=== PATIENT | male | born 1980 | race Two or more races ===

== ENCOUNTER 2017-06-11 04:29 | Emergency (ER) | payer MEDICAID ==
[~2017-06-11] VITALS: Ht 165.1 cm; Wt 117.9 kg
[2017-06-11] MEDS ORDERED: NKM (04:37)
[2017-06-11] MEDS ORDERED: TAMIFLU75 MG ORAL (04:43)
[2017-06-11] MEDS ORDERED: TESSALON PERLE100 MG ORAL (04:43)
[2017-06-11] MEDS ORDERED: Ketorolac 30mg Inj ONE (04:47)
[2017-06-11 04:48] VITALS: BP 128/77
[2017-06-11] MEDS ORDERED: Ketorolac 30mg Inj IM ONE (05:00)
[2017-06-11 05:13] VITALS: BP 128/77
--- NOTE | 2017-06-11 11:34 | Diagnostic Imaging Report ---
Indication: Cough Technique: XRAY Chest 1v Comparison: 12/14/2011 Findings: Heart size and mediastinal contours are within normal limits given technique. There is no focal consolidation, pneumothorax or pleural effusion. Osseous structures demonstrate no acute abnormality. Impression: No focal airspace consolidation.
--- NOTE | 2017-06-11 21:29 | Emergency Room Report ---
History of Present Illness General Chief Complaint: Upper Respiratory Illness Source: Patient Present Illness HPI 36-year-old male, no significant past medical history, presenting with fever chills myalgias runny nose for 3-4 days. States that his family is sick at home. Has still been able to eat and drink. Complaining of throat pain, nonproductive cough. Allergies: Coded Allergies: No Known Allergies (Unverified , 06/11/17) Patient History Past Medical History: see triage record Past Surgical History: none Pertinent Family History: none Reviewed Nursing Documentation: PMH: Agreed, PSxH: Agreed Nursing Documentation-PMH Past Medical History: No Stated History Review of Systems All Other Systems: negative except mentioned in HPI Physical Exam Vital Signs Date Time Temp Pulse Resp B/P (MAP) Pulse Ox O2 Delivery O2 Flow Rate FiO2 06/11/17 04:32 99.9 117 18 128/77 99 Room Air Sp02 EP Interpretation: reviewed, normal General Appearance: alert, GCS 15, non-toxic, mild distress Head: normocephalic, atraumatic Eyes: bilateral eye normal inspection, bilateral eye PERRL, bilateral eye EOMI ENT: normal ENT inspection, normal pharynx, normal voice, moist mucus membranes Neck: normal inspection, full range of motion, supple Respiratory: normal inspection, lungs clear, normal breath sounds, no respiratory distress, no retraction, no wheezing, speaking full sentences, chest symmetrical Cardiovascular #1: normal inspection, regular rate, rhythm, no edema, normal capillary refill Cardiovascular #2: 2+ radial (R), 2+ radial (L) Gastrointestinal: normal inspection, non tender, soft, non-distended, no guarding Genitourinary: no CVA tenderness Musculoskeletal: normal inspection, back normal, normal range of motion, non- tender Neurologic: normal inspection, alert, oriented x3, responsive, motor strength/ tone normal, sensory intact, normal gait, speech normal Psychiatric: normal inspection, judgement/insight normal, memory normal Skin: normal inspection, normal color, no rash, warm/dry, well hydrated, normal turgor Medical Decision Making Diagnostic Impression: Primary Impression: Flu-like symptoms ER Course 36-year-old male with fever chills cough runny nose DDX: Flu like symptoms versus pneumonia Plan: CXR ER course: Patient remains nontoxic, not in resp distress. Appears well-hydrated CXR obtained - no acute infiltrate Disposition: Patient is to be discharged home with a prescription of Tamiflu and tessalon pearls Strict precautions discussed with patient on when to return to the emergency room including hemoptysis, high fevers, chills, SOB, chest pain inability to eat or drink, intractable nausea or vomiting which may indicate severe illness. Patient is to follow up with their primary care doctor within 5 days. Patient agrees with plan. Please note that this Emergency Department Report was dictated using [employer] technology software, occasionally this can lead to erroneous entry secondary to interpretation by the dictation equipment Chest X-ray CXR: Ordered: Yes 1 view Indication: Cough EP interpretation: Yes Interpretation: No consolidation, no effusion, no PTX, no acute cardiopulmonary disease Impression: No acute disease Electronically signed by Janine Chauhan MD Last Vital Signs Date Time Temp Pulse Resp B/P (MAP) Pulse Ox O2 Delivery O2 Flow Rate FiO2 06/11/17 05:13 99.9 113 18 128/77 96 Room Air Disposition: HOME, SELF-CARE Condition: Stable Scripts Oseltamivir Phosphate (Tamiflu) 75 Mg Capsule 75 MG ORAL TWICE A DAY for 5 Days, #10 CAP 0 Refills Prov: Janine Chauhan M.D. 06/11/17 Benzonatate* (TESSALON PERLE*) 100 Mg Capsule 100 MG ORAL THREE TIMES A DAY for 7 Days, #21 PERLE Prov: Janine Chauhan M.D. 06/11/17 Referrals: [facility],REFERRING (PCP) Patient Instructions: Upper Respiratory Infection, Adult Janine Chauhan M.D. Jun 11, 2017 21:29
[2017-06-16] MEDS ORDERED: AUGMENTIN 875-1 EAC1 ORAL (08:04)
== END 2017-06-11 05:13 | disposition home or self-care (01) ==
LOC: EMR 04:49
DX: J11.1 Influenza due to unidentified influenza virus with other respiratory manifestations (principal)
CPT/HCPCS: 71045; 96372; 99283; J1885

== ENCOUNTER 2017-06-11 19:51 | Inpatient (IN) | payer OTHER, MEDICAID ==
[~2017-06-11] VITALS: Ht 165.1 cm; Wt 112.9 kg
[~2017-06-11 19:51] MED LIST: NKM; TAMIFLU75 MG ORAL; TESSALON PERLE100 MG ORAL
[2017-06-11 20:15] VITALS: BP 126/83
[2017-06-11] MEDS ORDERED: HYDROcodone/Acetamin 7.5/325 tab ORAL ONE (21:00)
--- NOTE | 2017-06-11 21:49 | Emergency Room Report ---
History of Present Illness General Chief Complaint: Flu Like Symptoms Source: Patient (Yue Mckeon) Present Illness HPI 36-year-old male presents to the emergency department complaining of 8/10 in severity frontal sinus headache, generalized body aches, cough, subjective fevers and chills with fatigue x3 days. Patient was seen here in the emergency department earlier today. He was discharged with Tamiflu and Tessalon Perles. Patient states that his symptoms continue to progress. he reports decreased appetite. Progressive fatigue. Denies high fevers, neck stiffness, irritability, dehydration, N/V/D. Denies Cp, Palpitations, LOC, AMS, seizures, paresthesias, or changes in Hearing or vision, no Sudden severe ROBB. (Yue Mckeon) Allergies: Coded Allergies: No Known Allergies (Unverified , 06/11/17) Patient History Past Medical History: see triage record Past Surgical History: none Pertinent Family History: none Reviewed Nursing Documentation: PMH: Agreed, PSxH: Agreed (Yue Mckeon) Nursing Documentation-PMH Past Medical History: No Stated History (Yue Mckeon) Review of Systems All Other Systems: negative except mentioned in HPI (Yue Mckeon) Physical Exam Vital Signs Date Time Temp Pulse Resp B/P (MAP) Pulse Ox O2 Delivery O2 Flow Rate FiO2 06/11/17 20:10 99.7 120 16 126/83 98 Room Air Sp02 EP Interpretation: reviewed, normal General Appearance: alert, GCS 15, non-toxic, mild distress Head: normocephalic, atraumatic Eyes: bilateral eye normal inspection, bilateral eye PERRL ENT: hearing grossly normal, normal pharynx, normal voice, uvula midline, pharyngeal erythema, other - no exudates Neck: full range of motion Respiratory: chest non-tender, lungs clear, normal breath sounds, no respiratory distress, no wheezing, speaking full sentences Cardiovascular #1: no edema, normal capillary refill, tachycardia Gastrointestinal: normal bowel sounds, non tender, soft Rectal: deferred Genitourinary: normal inspection Musculoskeletal: back normal, gait/station normal, normal range of motion, non- tender Neurologic: alert, oriented x3, responsive, motor strength/tone normal, sensory intact, speech normal, no pronator, other - negative muñoz's, grossly normal Psychiatric: judgement/insight normal Skin: normal color, no rash, warm/dry, well hydrated Lymphatic: no adenopathy (Yue Mckeon) Procedures Critical Care Time Critical Care Time 40 minutes of CC time 36-year-old male, fever chills, shortness of breath, cough VS: Tachycardic, febrile Airway patent. Not hypoxic. PLAN: IV access, labs, lactate, troponin, Blood/Urine Cx, Abx, IVF Anticipate admission to Tele vs. KATHLEEN CC time also includes review of labs, review of EMR, discussion with family and paperwork from SNF, d/w hospitalist CC could include dosing of pressors, additional Abx CC time does not include procedures (Janine Chauhan M.D.) Medical Decision Making PA Attestation Dr. pringle is my supervising Physician whom patient management has been discussed with. (Yue Mckeon) Diagnostic Impression: Primary Impression: Flu-like symptoms Additional Impressions: Influenza-like symptoms Sepsis ER Course 36-year-old male presents to the emergency department complaining of 8/10 in severity frontal sinus headache, generalized body aches, cough, subjective fevers and chills with fatigue x3 days. Patient was seen here in the emergency department earlier today. He was discharged with Tamiflu and Tessalon Perles. Patient states that his symptoms continue to progress. he reports decreased appetite. Progressive fatigue. Denies high fevers, neck stiffness, irritability, dehydration, N/V/D. Denies Cp, Palpitations, LOC, AMS, seizures, paresthesias, or changes in Hearing or vision, no Sudden severe ROBB. Ddx considered but are not limited to URI, pneumonia, PE, strep pharyngitis, meningitis, influenza just to name a few. Vital signs: Pt is tachycardic at 120bpm, remaining VS are WNL He is afebrile. H&PE are most consistent with URI- no meningeal signs, oropharynx is not involved ORDERS: -CBC: Pending -CMP; Pending -INFLUENZA NASAL SWABS: Pending ED INTERVENTIONS: None required at this time. - 1 Liter NS Bolus -[place] PO This patient has been signed out to attending physician Dr. Chauhan, and is awaiting completion of the labs, IV fluids and reassessment. (Yue Mckeon) ER Course I received signout. This is a 36-year-old male, has had flulike symptoms, myalgias, runny nose, cough. Was seen in the emergency room by me yesterday, was discharged with medications. Patient now returning with worsening symptoms. Feeling very weak. Tachycardic, febrile Given fluids, [place], Tylenol White blood cell count is elevated, also patient has bandemia Unclear what source of infection is, likely flu, Tamiflu given here. blood cultures were drawn. Broad-spectrum antibiotics also given for sepsis Sepsis Re-examination Time: 12 AM VS: Temp 99 HR 100 BP 110/69 RR 17 CVS: RRR Respiratory: Lungs clear bilaterally Peripheral pulses: 2+ radial Capillary refill: <2 seconds Skin exam: warm, dry, no rash, not mottled Patient will be admitted to telemetry for sepsis Patient was signed out to Dr Cuellar, who has accepted patient for admission. EKG Diagnostic Results EP Interpretation: Yes Rate: Tachycardic Rhythm: NSR ST Segments: No acute changes ASA given to patient: No Rhythm Strip EP Interpretation: Yes Rate: 94 Rhythm: NSR, no PVCs, no ectopy Chest X-ray CXR: Ordered: Yes 1 view Indication: Shortness of breath EP interpretation: Yes Interpretation: No consolidation, no effusion, no PTX, no acute cardiopulmonary disease Impression: No acute disease Electronically signed by Janine Chauhan MD Laboratory Tests Test 06/11/17 21:50 06/11/17 23:55 White Blood Count 20.9 K/UL (4.8-10.8) H Red Blood Count 6.10 M/UL (4.70-6.10) Hemoglobin 16.1 G/DL (14.2-18.0) Hematocrit 53.4 % (42.0-52.0) H Mean Corpuscular Volume 88 FL (80-99) Mean Corpuscular Hemoglobin 26.4 PG (27.0-31.0) L Mean Corpuscular Hemoglobin Concent 30.1 G/DL (32.0-36.0) L Red Cell Distribution Width 13.4 % (11.6-14.8) Platelet Count 216 K/UL (150-450) Mean Platelet Volume 7.4 FL (6.5-10.1) Neutrophils (%) (Auto) % (45.0-75.0) Lymphocytes (%) (Auto) % (20.0-45.0) Monocytes (%) (Auto) % (1.0-10.0) Eosinophils (%) (Auto) % (0.0-3.0) Basophils (%) (Auto) % (0.0-2.0) Differential Total Cells Counted 100 Neutrophils % (Manual) 73 % (45-75) Lymphocytes % (Manual) 13 % (20-45) L Monocytes % (Manual) 7 % (1-10) Eosinophils % (Manual) 0 % (0-3) Basophils % (Manual) 0 % (0-2) Band Neutrophils 7 % (0-8) Platelet Estimate Adequate Platelet Morphology Normal Red Blood Cell Morphology Normal Sodium Level 133 MMOL/L (136-145) L Potassium Level 3.8 MMOL/L (3.5-5.1) Chloride Level 96 MMOL/L (98-107) L Carbon Dioxide Level 26 MMOL/L (21-32) Anion Gap 11 mmol/L (5-15) Blood Urea Nitrogen 9 mg/dL (7-18) Creatinine 1.1 MG/DL (0.55-1.30) Estimate Glomerular Filtration Rate > 60 mL/min (>60) Glucose Level 105 MG/DL (74-106) Calcium Level 9.6 MG/DL (8.5-10.1) Total Bilirubin 0.8 MG/DL (0.2-1.0) Aspartate Amino Transferase (AST) 27 U/L (15-37) Alanine Aminotransferase (ALT) 49 U/L (12-78) Alkaline Phosphatase 139 U/L (46-116) H Total Protein 8.8 G/DL (6.4-8.2) H Albumin 3.9 G/DL (3.4-5.0) Globulin 4.9 g/dL Albumin/Globulin Ratio 0.8 (1.0-2.7) L Lactic Acid Level Pending Microbiology Date/Time Source Procedure Growth Status 06/11/17 21:50 Nasal Nares Influenza Types A,B Antigen (CARLOS) - Final Complete (Retino,Clairose M.D.) Last Vital Signs Date Time Temp Pulse Resp B/P (MAP) Pulse Ox O2 Delivery O2 Flow Rate FiO2 06/11/17 20:10 99.7 120 16 126/83 98 Room Air (Yue Mckeon) Disposition: ADMITTED INPATIENT Condition: Serious Signed Out To: Dr. Chauhan (Yue Mckeon) Yue Mckeon Jun 11, 2017 21:49 Janine Chauhan M.D. Jun 11, 2017 23:50
[2017-06-11 22:26] LABS: HEMATOCRIT 53.4 % (42.0-52.0); HEMOGLOBIN 16.1 G/DL (14.2-18.0); MEAN CORPUSCULAR VOLUME 88 FL (80-99); PLATELET COUNT 216 K/UL (150-450); RED CELL DISTRIBUTION WIDTH 13.4 % (11.6-14.8); WHITE BLOOD COUNT 20.9 K/UL (4.8-10.8)
[2017-06-11 22:39] LABS: ANION GAP 11 mmol/L (5-15); BLOOD UREA NITROGEN 9 mg/dL (7-18); CALCIUM 9.6 MG/DL (8.5-10.1); CARBON DIOXIDE 26 MMOL/L (21-32); CHLORIDE 96 MMOL/L (98-107); CREATININE 1.1 MG/DL (0.55-1.30); POTASSIUM 3.8 MMOL/L (3.5-5.1); SODIUM 133 MMOL/L (136-145)
[2017-06-11 22:43] LABS: ALANINE AMINOTRANSFERASE 49 U/L (12-78); ALBUMIN 3.9 G/DL (3.4-5.0); ALBUMIN/GLOBULIN RATIO 0.8 (1.0-2.7); ALKALINE PHOSPHATASE 139 U/L (46-116); ASPARTATE AMINO TRANSFERASE 27 U/L (15-37); BILIRUBIN,TOTAL 0.8 MG/DL (0.2-1.0)
[2017-06-11] MEDS ORDERED: Oseltamivir 75mg cap ORAL ONE (23:00)
[2017-06-11] MEDS ORDERED: Vancomycin 1.5gm/D5W 250ml 250 ML IVPB ONE (23:15)
[2017-06-11] MEDS ORDERED: Cefepime HCl 1 GM in D5W 55 ML IVPB ONE (23:15)
[2017-06-11 23:58] VITALS: BP 127/84
[2017-06-12] VITALS (7 sets, daily range): BP systolic 122–141; BP diastolic 66–76
[2017-06-12] MEDS ORDERED: Cefepime 1gm vial ONE (00:19)
[2017-06-12] MEDS ORDERED: Promethazine/Codeine 5ml UD ORAL PRN ×2 (07:30→18:00)
[2017-06-12] MEDS ORDERED: Nitroglycerin Subl 0.4mg tab SL PRN ×2 (07:30→18:00)
[2017-06-12] MEDS ORDERED: Norco 5mg/325mg tab ORAL PRN ×2 (07:30→18:00)
[2017-06-12] MEDS ORDERED: Morphine Sulfate 2mg/ml Inj IVP PRN ×2 (07:30)
[2017-06-12] MEDS ORDERED: LORazepam Inj 2mg/ml 1ml IV PRN ×2 (07:30→18:00)
[2017-06-12] MEDS ORDERED: Ketorolac 30mg Inj IV PRN ×3 (07:30→18:00)
[2017-06-12] MEDS ORDERED: Albuterol/Ipratropium 3ml neb HHN PRN ×2 (07:30→18:00)
[2017-06-12] MEDS ORDERED: Heparin 5000 units/ml inj SUBQ SCH (09:00)
[2017-06-12] MEDS ORDERED: Theophylline ER 100mg ORAL SCH (09:00)
--- NOTE | 2017-06-12 10:37 | Diagnostic Imaging Report ---
Indication: Dyspnea Comparison: 06/11/2017 A single view chest radiograph was obtained. Findings: Cardiomediastinal appearance is within normal limits for age. Pulmonary vascularity is appropriate. The diaphragmatic contour is smooth and costophrenic angles are sharp. No pleural effusions are identified. The bones are unremarkable. Impression: No acute findings
[2017-06-12] MEDS ORDERED: Solu-MEDROL 125mg Inj IV SCH (12:00)
[2017-06-12] MEDS ORDERED: Piperacillin/Tazobactam 2.25 GM in D5W 55 ML IV SCH (14:00)
[2017-06-12] MEDS ORDERED: Zoysn 3.37gm in NS 100ML IVPB SCH (14:00)
--- NOTE | 2017-06-12 15:26 | History and Physical ---
History of Present Illness General Date patient seen: Jun 12, 2017 Reason for Hospitalization: Flu Like Symptoms Present Illness HPI 36-year-old male presents to the emergency department complaining of 8/10 in severity frontal sinus headache, generalized body aches, cough, subjective fevers and chills with fatigue x3 days. Patient states that his symptoms continue to progress. he reports decreased appetite. Progressive fatigue. Denies high fevers, neck stiffness, irritability, dehydration, N/V/D. Denies Cp , Palpitations, LOC, AMS, seizures, paresthesias, or changes in Hearing or vision, no Sudden severe ROBB. Pt was septic with tachycardia of 120 and admitted to telemetry for further work up. Allergies: Coded Allergies: No Known Allergies (Unverified , 06/11/17) Medication History Scheduled Benzonatate* (Tessalon Perle*), 100 MG ORAL THREE TIMES A DAY No Known Medications* (NKM - No Known Medications*), 0 ., (Reported) Oseltamivir Phosphate (Tamiflu), 75 MG ORAL TWICE A DAY Patient History Healthcare decision maker Resuscitation status Full Code Advanced Directive on File Review of Systems All Other Systems: negative except mentioned in HPI Physical Exam General Appearance: WD/WN Lines, tubes and drains: peripheral HEENT: normocephalic Neck: non-tender, normal alignment Respiratory/Chest: chest wall non-tender, lungs clear Breasts: no masses Cardiovascular/Chest: normal peripheral pulses Abdomen: normal bowel sounds Genitourinary/Rectal: normal genital exam Extremities: normal range of motion Skin Exam: normal pigmentation 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 Last 24 Hour Vital Signs Date Time Temp Pulse Resp B/P (MAP) Pulse Ox O2 Delivery O2 Flow Rate FiO2 06/12/17 12:00 97.7 60 18 141/74 100 06/12/17 12:00 71 06/12/17 08:00 97.4 63 19 133/75 100 06/12/17 08:00 80 06/12/17 04:00 88 06/12/17 04:00 98.1 102 20 124/76 97 06/12/17 01:55 98.1 106 20 141/76 100 06/12/17 01:33 99.0 99 27 122/66 95 Room Air 06/12/17 01:27 99.0 99 27 122/66 95 Room Air 06/11/17 23:58 99.0 109 19 127/84 96 Room Air 06/11/17 20:15 99.7 120 16 126/83 98 Room Air 06/11/17 20:15 120 16 Room Air 06/11/17 20:10 99.7 120 16 126/83 98 Room Air Intake and Output 06/11/17 06/12/17 19:00 07:00 Intake Total 250 ml Output Total 1000 ml Balance -750 ml Intake Oral 0 ml IV Total 250 ml Output Urine Total 1000 ml Laboratory Tests Test 06/11/17 21:50 06/11/17 23:55 White Blood Count 20.9 K/UL (4.8-10.8) H Red Blood Count 6.10 M/UL (4.70-6.10) Hemoglobin 16.1 G/DL (14.2-18.0) Hematocrit 53.4 % (42.0-52.0) H Mean Corpuscular Volume 88 FL (80-99) Mean Corpuscular Hemoglobin 26.4 PG (27.0-31.0) L Mean Corpuscular Hemoglobin Concent 30.1 G/DL (32.0-36.0) L Red Cell Distribution Width 13.4 % (11.6-14.8) Platelet Count 216 K/UL (150-450) Mean Platelet Volume 7.4 FL (6.5-10.1) Neutrophils (%) (Auto) % (45.0-75.0) Lymphocytes (%) (Auto) % (20.0-45.0) Monocytes (%) (Auto) % (1.0-10.0) Eosinophils (%) (Auto) % (0.0-3.0) Basophils (%) (Auto) % (0.0-2.0) Differential Total Cells Counted 100 Neutrophils % (Manual) 73 % (45-75) Lymphocytes % (Manual) 13 % (20-45) L Monocytes % (Manual) 7 % (1-10) Eosinophils % (Manual) 0 % (0-3) Basophils % (Manual) 0 % (0-2) Band Neutrophils 7 % (0-8) Platelet Estimate Adequate Platelet Morphology Normal Red Blood Cell Morphology Normal Sodium Level 133 MMOL/L (136-145) L Potassium Level 3.8 MMOL/L (3.5-5.1) Chloride Level 96 MMOL/L (98-107) L Carbon Dioxide Level 26 MMOL/L (21-32) Anion Gap 11 mmol/L (5-15) Blood Urea Nitrogen 9 mg/dL (7-18) Creatinine 1.1 MG/DL (0.55-1.30) Estimat Glomerular Filtration Rate > 60 mL/min (>60) Glucose Level 105 MG/DL (74-106) Calcium Level 9.6 MG/DL (8.5-10.1) Total Bilirubin 0.8 MG/DL (0.2-1.0) Aspartate Amino Transf (AST/SGOT) 27 U/L (15-37) Alanine Aminotransferase (ALT/SGPT) 49 U/L (12-78) Alkaline Phosphatase 139 U/L (46-116) H Total Protein 8.8 G/DL (6.4-8.2) H Albumin 3.9 G/DL (3.4-5.0) Globulin 4.9 g/dL Albumin/Globulin Ratio 0.8 (1.0-2.7) L Lactic Acid Level 1.00 mmol/L (0.66-2.22) Microbiology Date/Time Source Procedure Growth Status 06/11/17 21:50 Nasal Nares Influenza Types A,B Antigen (CARLOS) - Final Complete Height (Feet): 5 Height (Inches): 5.00 Weight (Pounds): 249 Medications Current Medications Medications (Trade) Dose Ordered Sig/Lokesh Route PRN Reason Start Time Stop Time Status Last Admin Dose Admin Acetaminophen/ Hydrocodone Bitart ([place] 5/325) 1 tab Q4H PRN ORAL Moderate Pain (Pain Scale 4-6) 06/12/17 07:30 06/19/17 07:29 06/12/17 07:18 Albuterol/ Ipratropium (Albuterol/ Ipratropium) 3 ml Q4H PRN HHN dyspnea 06/12/17 07:30 06/17/17 07:29 Dextrose (Dextrose 50%) STAT PRN IV Hypoglycemia 06/12/17 07:30 07/12/17 07:29 Heparin Sodium (Porcine) (Heparin 5000 units/ml) 5,000 units EVERY 12 HOURS SUBQ 06/12/17 09:00 07/12/17 08:59 06/12/17 09:16 Ketorolac Tromethamine (Toradol 30mg) 30 mg Q8H PRN IV Moderate Pain (Pain Scale 4-6) 06/12/17 07:30 06/17/17 07:29 06/12/17 08:40 Lorazepam (Ativan 2mg/ml 1ml) 0.5 mg Q4H PRN IV For Anxiety 06/12/17 07:30 06/19/17 07:29 Methylprednisolone Sodium Succinate (Solu-MEDROL) 60 mg EVERY 6 HOURS IV 06/12/17 12:00 07/12/17 11:59 06/12/17 12:24 Morphine Sulfate (Morphine Sulfate) 2 mg Q4H PRN IVP Severe Pain (Pain Scale 7-10) 06/12/17 07:30 06/19/17 07:29 06/12/17 15:03 Nitroglycerin (Ntg) 0.4 mg Q5M X 3 DOSES PRN SL Prn Chest Pain 06/12/17 07:30 07/12/17 07:29 Ondansetron HCl (Zofran) 4 mg Q6H PRN IVP Nausea & Vomiting 06/12/17 07:30 07/12/17 07:29 Piperacillin Sod/ Tazobactam Sod 3.375 gm/Sodium Chloride 110 ml @ 27.5 mls/hr EVERY 8 HOURS IVPB 06/12/17 14:00 06/17/17 13:59 06/12/17 15:02 Promethazine HCl/ Codeine (Phenergan with Codeine) 5 ml Q6H PRN ORAL cough 06/12/17 07:30 07/12/17 07:29 Temazepam (Restoril) 15 mg HSPRN PRN ORAL Insomnia 06/12/17 21:00 06/19/17 20:59 Theophylline ([place]-Dur) 100 mg EVERY 12 HOURS ORAL 06/12/17 09:00 07/12/17 08:59 06/12/17 09:11 Assessment/Plan Problem List: (1) Sepsis ICD Codes: A41.9 - Sepsis, unspecified organism SNOMED: 43945359 (2) Influenza-like symptoms ICD Codes: R68.89 - Other general symptoms and signs SNOMED: 561480110 Assessment/Plan ID [email or web address] symptomatic treatment. IV abx check cultures FILI BROCK Jun 12, 2017 15:26
[2017-06-12] MEDS: Solu-MEDROL 125mg Inj IV SCH ×2 (18:23→23:31)
[2017-06-12] MEDS: Morphine Sulfate 2mg/ml Inj IVP PRN ×2 (18:28→22:18)
[2017-06-12] MEDS: Theophylline ER 100mg ORAL SCH (20:50)
[2017-06-12] MEDS: Heparin 5000 units/ml inj SUBQ SCH (20:52)
[2017-06-12] MEDS: Piperacillin/Tazobactam 3.375 GM in NS 110 ML IVPB SCH (22:26)
[2017-06-13] VITALS: BP 126/70
[2017-06-13 04:00] VITALS: BP 128/72
[2017-06-13] MEDS: Solu-MEDROL 125mg Inj IV SCH ×3 (05:32→18:21)
[2017-06-13] MEDS: Piperacillin/Tazobactam 3.375 GM in NS 110 ML IVPB SCH ×2 (05:33→14:18)
[2017-06-13] MEDS: Morphine Sulfate 2mg/ml Inj IVP PRN (05:59)
[2017-06-13 08:00] VITALS: BP 109/71
[2017-06-13] MEDS: Theophylline ER 100mg ORAL SCH (09:05)
[2017-06-13] MEDS: Heparin 5000 units/ml inj SUBQ SCH (09:07)
[2017-06-13 12:00] VITALS: BP 136/88
[2017-06-13 16:00] VITALS: BP 130/75
--- NOTE | 2017-06-13 16:22 | Pulmonology Progress Note ---
Assessment/Plan Problems: (1) Sepsis (2) Influenza-like symptoms Assessment/Plan improing continue abx, switch to PO augmentin dc home with close f/u with primary Subjective ROS Limited/Unobtainable: No Constitutional: Reports: no symptoms HEENT: Repors: no symptoms Respiratory: Reports: no symptoms Allergies: Coded Allergies: No Known Allergies (Unverified , 06/11/17) Objective Last 24 Hour Vital Signs Date Time Temp Pulse Resp B/P (MAP) Pulse Ox O2 Delivery O2 Flow Rate FiO2 06/13/17 12:00 98.2 91 19 136/88 96 06/13/17 08:00 98.3 99 19 109/71 96 06/13/17 04:00 97.0 64 19 128/72 98 06/13/17 00:00 97.2 60 18 126/70 100 06/12/17 20:00 97.4 62 19 128/72 100 06/12/17 18:58 97.7 Intake and Output 06/12/17 06/13/17 19:00 07:00 Intake Total 1172.5 ml 700 ml Output Total 970 ml 1100 ml Balance 202.5 ml -400 ml Intake Oral 1040 ml 600 ml IV Total 82.5 ml Other 50 ml 100 ml Output Urine Total 970 ml 1100 ml # Bowel Movements 2 2 General Appearance: WD/WN HEENT: normocephalic, anicteric Respiratory/Chest: chest wall non-tender, normal breath sounds Cardiovascular: normal peripheral pulses, normal rate Abdomen: normal bowel sounds, no organomegaly Extremities: no cyanosis Skin: no lesions Microbiology Date/Time Source Procedure Growth Status 06/11/17 23:55 Blood Blood Culture - Preliminary NO GROWTH AFTER 24 HOURS Resulted 06/11/17 23:40 Blood Blood Culture - Preliminary NO GROWTH AFTER 24 HOURS Resulted 06/11/17 21:50 Nasal Nares Influenza Types A,B Antigen (CARLOS) - Final Complete Current Medications Medications (Trade) Dose Ordered Sig/Lokesh Route PRN Reason Start Time Stop Time Status Last Admin Dose Admin Acetaminophen/ Hydrocodone Bitart ([place] 5/325) 1 tab Q4H PRN ORAL Moderate Pain (Pain Scale 4-6) 06/12/17 18:00 06/19/17 17:59 Albuterol/ Ipratropium (Albuterol/ Ipratropium) 3 ml Q4H PRN HHN dyspnea 1/11/18 18:00 06/17/17 17:59 Dextrose (Dextrose 50%) STAT PRN IV Hypoglycemia 06/12/17 18:00 07/12/17 17:59 Heparin Sodium (Porcine) (Heparin 5000 units/ml) 5,000 units EVERY 12 HOURS SUBQ 06/12/17 21:00 07/12/17 08:59 06/13/17 09:07 Ketorolac Tromethamine (Toradol 30mg) 30 mg Q8H PRN IV Moderate Pain (Pain Scale 4-6) 06/12/17 18:00 06/17/17 17:59 Lorazepam (Ativan 2mg/ml 1ml) 0.5 mg Q4H PRN IV For Anxiety 06/12/17 18:00 06/19/17 17:59 Methylprednisolone Sodium Succinate (Solu-MEDROL) 60 mg EVERY 6 HOURS IV 06/12/17 18:30 07/12/17 18:29 06/13/17 11:38 Morphine Sulfate (Morphine Sulfate) 2 mg Q4H PRN IVP Severe Pain (Pain Scale 7-10) 06/12/17 19:00 06/19/17 18:59 06/13/17 05:59 Nitroglycerin (Ntg) 0.4 mg Q5M X 3 DOSES PRN SL Prn Chest Pain 06/12/17 18:00 07/12/17 07:29 Ondansetron HCl (Zofran) 4 mg Q6H PRN IVP Nausea & Vomiting 06/12/17 18:00 07/12/17 17:59 Piperacillin Sod/ Tazobactam Sod 3.375 gm/Sodium Chloride 110 ml @ 27.5 mls/hr EVERY 8 HOURS IVPB 06/12/17 22:00 06/17/17 13:59 06/13/17 14:18 Promethazine HCl/ Codeine (Phenergan with Codeine) 5 ml Q6H PRN ORAL cough 06/12/17 18:00 07/12/17 17:59 Temazepam (Restoril) 15 mg HSPRN PRN ORAL Insomnia 06/12/17 21:00 06/19/17 20:59 06/12/17 22:16 Theophylline ([place]-Dur) 100 mg EVERY 12 HOURS ORAL 06/12/17 21:00 07/12/17 08:59 06/13/17 09:05 FILI BROCK Jun 13, 2017 16:22
[2017-06-13] MEDS ORDERED: NS 500ML ONE (18:59)
--- NOTE | 2017-06-14 15:25 | Cardiology Report ---
APPROVED REPORT EKG Measurement Heart [id number] Normal sinus rhythm Incomplete right bundle branch block Borderline ECG
--- NOTE | 2017-06-16 07:58 | Discharge Summary ---
Discharge Summary Hospital Course Date of Admission Jun 11, 2017 at 23:56 Date of Discharge Jun 13, 2017 at 19:00 Admitting Diagnosis SEPSIS HPI Tin Myers is a 36 year old male who was admitted on Jun 11, 2017 at 23:56 for Sepsis Hospital Course dc summary #[id number] Discharge Medications New Medications: Amoxicillin/Potassium Clav 875-125* (Augmentin 875-125 Tablet*) 1 Each Tablet 1 TAB ORAL TWICE A DAY, #10 TAB Continued Medications: Benzonatate* (Tessalon Perle*) 100 Mg Capsule 100 MG ORAL THREE TIMES A DAY for 7 Days, #21 PERLE No Known Medications* (NKM - No Known Medications*) . 0 ., 0 Refills Discharge Condition Upon Discharge: stable Discharge Disposition Patient was discharged home Discharge Diagnoses: Discharge Instructions Discharge Instructions Special Instructions I have been assigned to complete a D/C Summary on this account. I was not involved in the patient management An Flores NP (Vanchtein) Jun 16, 2017 07:58
[2017-06-16] MEDS ORDERED: AUGMENTIN 875-1 EAC1 ORAL (08:04)
--- NOTE | 2017-06-17 03:02 | Discharge Summary 2 SIG ---
DATE OF ADMISSION: 06/11/2017 DATE OF DISCHARGE: 06/13/2017 REASON FOR ADMISSION: A 36-year-old male came to emergency room complaining of severe 8/10 frontal sinus headache, generalized body aches, cough, subjective fever and chills and fatigue for three days. The patient reported progressive fatigue and decreased appetite. No chest pain. No shortness of breath. No high fever. No neck stiffness. No nausea, vomiting, or diarrhea. No palpitations. No loss of consciousness. Workup in the emergency room revealed, that the patient was tachycardic with heart rate -120, low-grade fever -99.7 degrees, and WBC -20.9. The patient was admitted with influenza like symptoms. HOSPITAL COURSE: The patient admitted. Rapid influenza screen test was negative. Blood cultures were negative. Chest x-ray revealed no acute cardiopulmonary process. The patient was on supportive therapy. Supplemental oxygen provided as needed to keep saturation above 92%. Pulmonary toilet was on standby to use on as needed basis. The patient started on empiric antibiotics. DVT prophylaxis provided. Antitussive provided as needed. The patient was slowly improving. Tachycardia and fever resolved. Pulse oximetry stable on room air. The patient was stable for discharge home. DISCHARGE DIAGNOSIS: Influenza like disease. DISCHARGE MEDICATIONS: Script provided for oral antibiotic to complete the course. DISCHARGE INSTRUCTIONS: The patient was discharged home. Follow up with the primary medical doctor. Shay Cuellar M.D. I have been assigned to dictate discharge summary on this account and I was not involved in the patient's management. An Flores (Vanchtein) NTanya DR: Feli JOB#: [id number] CC: GEOVANNY
== END 2017-06-13 19:00 | disposition home or self-care (01) | DRG 153 ==
LOC: EMR 20:28 → 2E 23:56 → EDBEDREQ 06-12 01:09 → 3E 06-12 17:26
DX: J11.1 Influenza due to unidentified influenza virus with other respiratory manifestations (principal); R51 Headache
CPT/HCPCS: 36415; 71045; 80053; 83605; 85007; 85025; 86710; 87040; 93005